=== PATIENT | female | born 1995 | race Two or more races ===

== ENCOUNTER 2020-06-23 16:56 | Emergency (ER) | payer MEDICAID ==
[~2020-06-23] VITALS: Ht 147.3 cm; Wt 59.9 kg
[2020-06-23 17:22] VITALS: BP 129/83
[2020-06-23] MEDS ORDERED: AMOX-430 PO (17:34)
[2020-06-23] MEDS ORDERED: AMOX/CLAVULANATE 875 MG TABLET ONE (17:36)
--- NOTE | 2020-06-23 17:42 | NUR ---
Patient discharged to home in stable condition. Written and verbal after care instructions given. Patient verbalizes understanding of instruction.
[2020-06-23] MEDS ORDERED: AMOX/CLAVULANATE 875 MG TABLET PO ONE (18:00)
== END 2020-06-23 17:42 | disposition home or self-care (01) ==
LOC: ER 17:02
DX: S91.011A Laceration without foreign body, right ankle, initial encounter (principal); W55.01XA Bitten by cat, initial encounter; Y93.89 Activity, other specified; Y92.89 Other specified places as the place of occurrence of the external cause; Y99.8 Other external cause status